=== PATIENT | female | born 1980 | race American Indian/Alaskan Native ===

== ENCOUNTER 2021-04-27 06:28 | Emergency (ER) | payer SELFPAY ==
--- NOTE | 2021-04-27 07:21 | Emergency Department Report ---
- General Chief Complaint: Upper Respiratory Infection Stated Complaint: DIZZINESS COUGH Time Seen by Provider: 04/27/21 07:09 Source: patient Mode of arrival: Ambulatory Limitations: No Limitations - History of Present Illness Initial Comments: 40-year-old female with a past medical history of insomnia, bipolar disorder, schizophrenia, tobacco abuse, and alcohol abuse presents to the ER today with complaints of a cough. Patient states that she has had this cough for about 4 months. She states that in the past week she feels like the cough is getting worse and she has developed associated rhinorrhea, nasal congestion and intermittent episodes of feeling dizzy. She states that she feels like she is not getting a full deep breath when she breathes, and sometimes when she does take a deep breath it causes her to cough. She states that cough seems to be worse at night. She has taken 2 COVID-19 test in the past 2 months and they were both negative. She states this is her first time being seen for discussed since it started about 4 months ago. She reports of burning pain in her right chest when she coughs. She reports no wheezing, fever, chills, sore throat, vom iting, abdominal pain or any additional symptoms. Patient states that he stopped drinking alcohol about 1 month ago. She denies any illicit drug use. She denies any known history of asthma, COPD or any lung disease. MD Complaint: cough -: month(s) - Related Data Previous Rx's Medication Instructions Recorded Last Taken Type Albuterol Mdi (or & Nicu Only) 2 puff IH QID PRN #8.5 gram 04/27/21 Unknown Rx [ProAir HFA Inhaler] Benzonatate [Tessalon Perles] 100 mg PO Q8HR #30 capsule 04/27/21 Unknown Rx Cetirizine HCl [Zyrtec 10mg tab] 10 mg PO DAILY #30 tablet 04/27/21 Unknown Rx Nicotine [Habitrol] 14 mg TD DAILY #7 patch 04/27/21 Unknown Rx predniSONE [Deltasone] 40 mg PO QDAY #10 tab 04/27/21 Unknown Rx Allergies Allergy/AdvReac Type Severity Reaction Status Date / Time cephalexin [From Keflex] Allergy Unknown Verified 04/27/21 06:32 ED Review of Systems ROS: Stated complaint: DIZZINESS COUGH Other details as noted in HPI Comment: All other systems reviewed and negative Constitutional: denies: chills, fever Eyes: denies: eye pain, eye discharge, vision change ENT: congestion, other (Rhinorrhea). denies: ear pain, throat pain Respiratory: cough, shortness of breath. denies: SOB with exertion, SOB at rest, wheezing Cardiovascular: other (Burning sensation right chest from cough). denies: chest pain, palpitations, dyspnea on exertion, edema, syncope, paroxysmal nocturnal dyspnea Endocrine: no symptoms reported Gastrointestinal: denies: abdominal pain, nausea, diarrhea, constipation, hematemesis, hematochezia Genitourinary: denies: urgency, dysuria, frequency, hematuria, discharge, abnormal menses, dyspareunia Musculoskeletal: denies: back pain, joint swelling, arthralgia Skin: denies: rash, lesions, change in color, change in hair/nails, pruritus Neurological: denies: headache, weakness, numbness, paresthesias, confusion, abnormal gait, vertigo Psychiatric: denies: anxiety, depression, auditory hallucinations, visual hallucinations, homicidal thoughts, suicidal thoughts Hematological/Lymphatic: denies: easy bleeding, easy bruising, swollen glands ED Past Medical Hx - Past Medical History Previous Medical History?: No - Surgical History Past Surgical History?: No - Medications Home Medications: Home Medications Medication Instructions Recorded Confirmed Last Taken Type Albuterol Mdi (or & Nicu Only) 2 puff IH QID PRN #8.5 gram 04/27/21 Unknown Rx [ProAir HFA Inhaler] Benzonatate [Tessalon Perles] 100 mg PO Q8HR #30 capsule 04/27/21 Unknown Rx Cetirizine HCl [Zyrtec 10mg tab] 10 mg PO DAILY #30 tablet 04/27/21 Unknown Rx Nicotine [Habitrol] 14 mg TD DAILY #7 patch 04/27/21 Unknown Rx predniSONE [Deltasone] 40 mg PO QDAY #10 tab 04/27/21 Unknown Rx ED Physical Exam - General Limitations: No Limitations General appearance: alert, in no apparent distress - Head Head exam: Present: atraumatic, normocephalic, normal inspection - Eye Eye exam: Present: normal appearance, PERRL, EOMI Pupils: Present: normal accommodation - Expanded ENT Exam Expanded TM/Canal exam: Effusion: Right TM, Left TM - Neck Neck exam: Present: normal inspection, full ROM. Absent: meningismus - Respiratory Respiratory exam: Present: normal lung sounds bilaterally. Absent: respiratory distress, wheezes, rales, rhonchi - Cardiovascular Cardiovascular Exam: Present: regular rate, normal rhythm, normal heart sounds - GI/Abdominal GI/Abdominal exam: Present: soft. Absent: distended, tenderness, guarding, rebound - Extremities Exam Extremities exam: Present: normal inspection, full ROM, normal capillary refill. Absent: tenderness, pedal edema, joint swelling, calf tenderness - Neurological Exam Neurological exam: Present: alert, oriented X3, CN II-XII intact, normal gait - Psychiatric Psychiatric exam: Present: normal affect, normal mood - Skin Skin exam: Present: intact ED Course Vital Signs 04/27/21 04/27/21 04/27/21 06:31 07:23 08:30 Temperature 98.3 F 97.7 F Pulse Rate 78 72 Respiratory 18 16 Rate Blood Pressure 157/105 Blood Pressure 140/94 [Right] O2 Sat by Pulse 100 98 Oximetry ED Medical Decision Making - Radiology Data Radiology results: report reviewed Patient: DENISE LAWRENCE MR#: [id number] [birth year] : 1980 Acct:[id number] Age/Sex: 40 / F ADM Date: 04/27/21 Loc: ED Attending Dr: Ordering Physician: GINA HEREDIA Date of Service: 04/27/21 Procedure(s): XR chest routine 2V Accession Number(s): [id number] cc: GINA HEREDIA Fluoro Time In Minutes: CHEST 2 VIEWS INDICATION: cough. COMPARISON: None FINDINGS: Support devices: None. Heart: Within normal limits. Lungs/pleura: No acute air space or interstitial disease. No pleural effusion or pneumothorax. Additional findings: None. IMPRESSION: Unremarkable chest films. Signer Name: Willi Kaur Jr, MD Signed: 04/27/2021 8:01 AM Workstation Name: [id number] Transcribed By: TTR Dictated By: WILLI KAUR JR, MD Electronically Authenticated By: WILLI KAUR JR, MD Signed Date/Time: 04/27/21 0801 - Medical Decision Making CXR shows nothing acute The patient is resting comfortably, is alert and in no distress. The patient has normal mental status and is neurologically intact. The patient appears well and there is no significant dehydration. There is no respiratory distress and no signs of systemic toxicity. Suspect URI /chronic bronchitis. Patient counseled on tobacco cessation. Her History, exam, diagnostic testing and current condition do not demonstrate an infectious process such as meningitis, severe pneumonia, ARDS with hypoxia, sepsis or other serious viral/bacterial infection requiring further testing, treatment, consultation or admission at this time. Discussed x-ray results, suspected diagnosis and treatment plan with patient. the patient's condition is stable and appropriate for discharge. The patient will pursue further outpatient evaluation with the primary care physician or other designated or consulting physician as indicated on the discharge instructions. Critical care attestation.: If time is entered above; I have spent that time in minutes in the direct care of this critically ill patient, excluding procedure time. ED Disposition Clinical Impression: URI (upper respiratory infection), Chronic bronchitis Disposition: HOME / SELF CARE / HOMELESS Is pt being admited?: No Does the pt Need Aspirin: No Condition: Stable Instructions: How to Use a Metered Dose Inhaler, Upper Respiratory Infection, Adult, [id number], Chronic Bronchitis, Adult, Chronic Bronchitis (ED) Additional Instructions: I recommend that you use the albuterol MDI as prescribed. Take the prednisone, the zyrtec and the tessalon perles as prescribed. I recommend following up with PCP in 1 week. I do recommend that you try to quit smoking. Nicotine patch was prescribed to you to help stop smoking. Return to ED if worse. Prescriptions: predniSONE [Deltasone] 40 mg PO QDAY #10 tab Nicotine [Habitrol] 14 mg TD DAILY #7 patch Albuterol Mdi (or & Nicu Only) [ProAir HFA Inhaler] 2 puff IH QID PRN #8.5 gram PRN Reason: Shortness Of Breath Benzonatate [Tessalon Perles] 100 mg PO Q8HR #30 capsule Cetirizine HCl [Zyrtec 10mg tab] 10 mg PO DAILY #30 tablet Referrals: [facility] [Provider Group] - 3-5 Days ALIYAH WEATHERS MD [Staff Physician] - 3-5 Days Forms: Work/School Release Form(ED) Time of Disposition: 08:13
--- NOTE | 2021-04-27 08:06 | XRay Report ---
CHEST 2 VIEWS INDICATION: cough. COMPARISON: None FINDINGS: Support devices: None. Heart: Within normal limits. Lungs/pleura: No acute air space or interstitial disease. No pleural effusion or pneumothorax. Additional findings: None. IMPRESSION: Unremarkable chest films. Signer Name: Willi Kaur Jr, MD Signed: 04/27/2021 8:01 AM Workstation Name: [id number]
[2021-04-27 08:35] VITALS: BP 140/94
== END 2021-04-27 08:35 | disposition home or self-care (01) ==
LOC: ED 06:28
DX: J06.9 Acute upper respiratory infection, unspecified (principal); J41.0 Simple chronic bronchitis; Z88.1 Allergy status to other antibiotic agents; F31.9 Bipolar disorder, unspecified; F20.9 Schizophrenia, unspecified; G47.00 Insomnia, unspecified
CPT/HCPCS: 71046; 99283

== ENCOUNTER 2021-08-17 23:57 | Emergency (ER) | payer SELFPAY ==
[2021-08-18 00:36] VITALS: BP 106/74
--- NOTE | 2021-08-18 04:39 | Emergency Department Report ---
Upper Extremity - HPI Chief Complaint: Extremity Injury, Upper Stated Complaint: FINGER INJURED Time Seen by Provider: 08/18/21 04:07 Upper Extremity: Right Index Finger (Ring stuck on finger 4 days ago) Occurred When: 4 Days Mechanism: Other (Placed a new ring on finger 4 days ago now stuck) Symptoms: Yes Pain with Movement, Yes Limited Range of Movement (Due to pain), Yes Numbness ED Review of Systems ROS: Stated complaint: FINGER INJURED Other details as noted in HPI Comment: All other systems reviewed and negative ED Past Medical Hx - Medications Home Medications: Home Medications Medication Instructions Recorded Confirmed Last Taken Type Albuterol Mdi (or & Nicu Only) 2 puff IH QID PRN #8.5 gram 04/27/21 Unknown Rx [ProAir HFA Inhaler] Benzonatate [Tessalon Perles] 100 mg PO Q8HR #30 capsule 04/27/21 Unknown Rx Cetirizine HCl [Zyrtec 10mg tab] 10 mg PO DAILY #30 tablet 04/27/21 Unknown Rx Nicotine [Habitrol] 14 mg TD DAILY #7 patch 04/27/21 Unknown Rx predniSONE [Deltasone] 40 mg PO QDAY #10 tab 04/27/21 Unknown Rx Upper Extremity Exam - Exam General: Vital signs noted. No distress. Alert and acting appropriately. Head and Torso: No HEENT Abnormality, No Neck Tenderness, No Chest/Lungs Abnormality, No Abdominal Tenderness, No Back Tenderness Shoulder Exam: Yes Normal Range of Motion in Shoulder, No Shoulder Tenderness, No Clavicle Tenderness, No Shoulder Deformity, No AC Joint Tenderness Arm Exam: No Arm/Humerus Tenderness, No Arm Deformity Elbow: No Elbow Tenderness, No Normal Range of Motion in Elbow, No Elbow Deformity Forearm: No Forearm Tenderness, No Forearm Deformity, No Pain with Pronation, No Pain with Supination Wrist: Yes Normal ROM in Wrist, No Wrist Tenderness, No Wrist Deformity, No Snuffbox Tenderness, No Pain with Axial Thumb Compression Hand: Yes Digit Tenderness (Ring stuck to the finger index finger causing some swelling slight bluish tent with capillary refills present), Yes Normal ROM in Digit(s), No Hand Tenderness, No Hand Deformity, No Digit(s) Deformity, No Tendon Dysfunction CMS Exam: Yes Normal Distal Pulses, No Broken Skin, No Normal Distal Sensation ED Course Vital Signs 03/17/22 03/17/22 00:25 00:36 Temperature 98.5 F Pulse Rate 82 Respiratory 18 Rate Blood Pressure 106/74 [Left] O2 Sat by Pulse 99 Oximetry ED Medical Decision Making - Medical Decision Making 5-year-old female presents emerge department seeking assistance with a ring that can stop stuck on her finger 3 to 4 days ago. Critical care attestation.: If time is entered above; I have spent that time in minutes in the direct care of this critically ill patient, excluding procedure time. ED Disposition Clinical Impression: Tight ring on finger Disposition: HOME / SELF CARE / HOMELESS Is pt being admited?: No Does the pt Need Aspirin: No Condition: Stable Instructions: How to Use Cold Therapy Additional Instructions: Ring was removed successfully please utilize ice and anti-inflammatories as needed for discomfort over the next couple of days and evaluate the cause for swelling which led to the ring becoming stuck on the finger Referrals: [facility] [Provider Group] - 3-5 Days
== END 2021-08-18 04:38 | disposition left against medical advice (07) ==
LOC: ED 23:57
DX: S69.91XA Unspecified injury of right wrist, hand and finger(s), initial encounter (principal); X58.XXXA Exposure to other specified factors, initial encounter; Y93.89 Activity, other specified; Y92.89 Other specified places as the place of occurrence of the external cause; Y99.8 Other external cause status
CPT/HCPCS: 99281